=== PATIENT | male | born 1980 | race Caucasian/White ===

== ENCOUNTER → 2017-02-05 | Outpatient (CLI) | payer OTHER ==
--- NOTE | 2017-02-05 14:19 | REP ---
MRI right foot without contrast: History: Benign lipoma of the heel pad. Increased arch and foot pain. Technique: Axial, sagittal and coronal imaging planes were utilized. T1 and T2-weighted sequences include inversion recovery, spin echo, and turbo spin echo imaging. No comparison imaging. MRI findings: There is a intermediate T1 high T2 signal intensity septated appearing 5.2 cm lesion in the subcutaneous tissues of the heel pad. Internal signal intensity is somewhat inhomogeneous. The lesion is well-circumscribed. There is no adjacent subcutaneous edema. There is no evidence of involvement of the underlying calcaneus, plantar fascia or Achilles tendon. Cortical and medullary bone signal intensity is normal in the os calcis as well as in the midfoot and forefoot bones. No overlying skin thickening is appreciated. Impression: Multiloculated or septated appearing lesion which may be cystic in the subcutaneous tissues of the heel pad. The lesion is not a benign lipoma. I would recommend post gadolinium enhanced MR imaging and possibly sonography for further characterization of this lesion as cystic versus solid. Signed by Mian Dawson MD 02/05/2017 05:22 P
== END ==
LOC: M RAD 09:46
PROVIDERS: ATTEND Podiatrist Foot & Ankle Surgery
DX: C85.90 Non-Hodgkin lymphoma, unspecified, unspecified site (principal)

== ENCOUNTER → 2017-02-18 | Outpatient (CLI) | payer OTHER ==
--- NOTE | 2017-02-19 22:41 | ECGEPIP ---
Stationary ECG Study [facility] Test Date: 2017-02-18 Pat Name: LUKE ECHAVARRIA Department: Room: - Gender: M Baler: CHAU : 1980 Requested By: Izaiah Clifford Order Number: [id number] Reading MD: Solo Benson Measurements Intervals [place] Rate: 69 P: 77 SD: 140 QRS: 5 QRSD: 141 T: 77 QT: 378 QTc: 406 Interpretive Statements SINUS RHYTHM RIGHT BUNDLE BRANCH BLOCK Possible right ventricular hypertrophy. No prior ECG available for comparison at the time of interpretation. Electronically Signed On 02-19-2017 22:41:13 EDT by Solo Benson
== END ==
LOC: M EKG 16:04
PROVIDERS: ATTEND Podiatrist Foot & Ankle Surgery
DX: Z01.818 Encounter for other preprocedural examination (principal)